=== PATIENT | female | born 1970 | race Caucasian/White ===

== ENCOUNTER 2022-12-25 18:31 | Inpatient (IN) | payer MEDICAID ==
[~2022-12-25] VITALS: Ht 149.9 cm; Wt 59.9 kg
[2022-12-25 18:56] VITALS: BP 233/78
[2022-12-25] MEDS ORDERED: ONDANSETRON 4 MG/2 ML VIAL IVP ONE (19:35)
[2022-12-25] MEDS ORDERED: MORPHINE SULFATE 4 MG/ML SYR IVP ONE (19:35)
[2022-12-25 19:36] LABS: BASOPHILS # (AUTO) 0.1 K/uL (0.00-0.22); BASOPHILS % (AUTO) 1.1 % (0.0-2.0); EOSINOPHILS # (AUTO) 0.3 K/uL (0-0.4); EOSINOPHILS % (AUTO) 3.7 % (0.0-4.0); HEMOGLOBIN 11.5 g/dL (12.0-16.0); LYMPHOCYTES # (AUTO) 4.4 K/uL (2.5-16.5); LYMPHOCYTES % (AUTO) 50.7 % (20.5-51.1); MEAN CORPUSCULAR HEMOGLOBIN 28 pg (27-31); MEAN CORPUSCULAR HGB CONC 34 g/dL (33-37); MEAN CORPUSCULAR VOLUME 83.1 fL (80-94); MONOCYTES # (AUTO) 0.5 K/uL (0.8-1.0); MONOCYTES % (AUTO) 5.7 % (1.7-9.3); NEUTROPHILS # (AUTO) 3.4 K/uL (1.8-7.7); NEUTROPHILS % (AUTO) 38.8 % (42.2-75.2); PLATELET COUNT (AUTO) 366 K/uL (140-450); RED CELL DISTRIBUTION WIDTH 14.2 % (11.6-13.7); WHITE BLOOD COUNT (AUTO) 8.7 K/uL (4.8-10.8)
--- NOTE | 2022-12-25 19:36 | NUR ---
PATIENT STABLE CAME TO ED FOR RIGHT UPER QUADRANT PAIN VITALS SIGNS IN NORMAL LIMITS ST 83 ON MONITOR
[2022-12-25 19:43] LABS: APPEARANCE,URINE CLEAR (CLEAR); BILIRUBIN,URINE NEGATIVE (NEGATIVE); BLOOD, URINE TRACE-I (NEGATIVE); COLOR,URINE YELLOW (YELLOW); LEUKOCYTE ESTERASE ,URINE NEGATIVE (NEGATIVE); NITRITE, URINE NEGATIVE (NEGATIVE); UGLUCOSE 2+ (NEGATIVE)
[2022-12-25] MEDS ORDERED: LABETALOL 20 MG/4 ML VIAL IVP ONE (20:00)
[2022-12-25 20:02] LABS: ALBUMIN 3.2 g/dL (3.4-5.0); ANION GAP 14.1 (8-16); CARBON DIOXIDE 25.6 mmol/L (21-32); CREATININE 0.9 mg/dL (0.6-1.3); POTASSIUM 3.7 mmol/L (3.5-5.1); TOTAL BILIRUBIN 0.2 mg/dL (0.0-1.0)
[2022-12-25 20:19] LABS: RBC,URINE 0 /HPF (0-5); WBC,URINE 0 /HPF (0-5)
[2022-12-25] MEDS ORDERED: PIPERACILLIN/TAZOBACTAM 3.375 GM in DEXTROSE 5% 50 ML IV ONE (20:30)
[2022-12-25] MEDS ORDERED: LORazepam 2 MG/ML VIAL IVP PRN (21:20)
[2022-12-25] MEDS ORDERED: ONDANSETRON 4 MG/2 ML VIAL IVP PRN (21:20)
[2022-12-25] MEDS ORDERED: MORPHINE SULFATE 2 MG/ML SYR IVP PRN (21:20)
[2022-12-25] MEDS ORDERED: POTASSIUM CHLORIDE 10 MEQ TABER PO PRN (21:20)
[2022-12-25] MEDS ORDERED: DOCUSATE SODIUM 100 MG GELCAP PO PRN (21:20)
[2022-12-25] MEDS ORDERED: MAG SULF 2000 MG/WATER PREMIX 50 ML IV PRN (21:20)
[2022-12-25] MEDS ORDERED: ZOLPIDEM 10 MG TAB PO PRN (21:20)
[2022-12-25] MEDS ORDERED: PIPERACILLIN/TAZOBACTAM 3.375 GM VIAL IV ONE (21:39)
--- NOTE | 2022-12-25 21:42 | NUR ---
COVID SWAB COLLECTED AND GIVEN TO AKOSUA FROM LAB.
[2022-12-25] MEDS ORDERED: PIPERACILLIN/TAZOBACTAM 3.375 GM in DEXTROSE 5% 50 ML IV SCH (21:45)
[2022-12-25] MEDS ORDERED: hydrALAZINE 20 MG/ML VIAL IVP ONE (22:00)
--- NOTE | 2022-12-25 23:00 | NUR ---
PT TRANSPORTED FROM ER VIA GURNEY. PT IS ABLE TO AMBULATE. GAIT STEADY. PT IS ALERT AND ORIENTATED. ESTONIAN SPEAKER. NOT IN ANY DISTRESS. REPORTS MILD PAIN ON RLQ OF ABD. PAIN IS TOLERABLE. PT HAS RIGHT WRIST 20 GAUGE. SALINE LOCK. EDUCATED PT FILLING MACHINE SET UP MECHANIC LIGHT SYSTEM AND ROOM ENVIRONMENT. POC DISCUSSED. WILL CONTINUE TO MONITOR THE PT.
--- NOTE | 2022-12-25 23:13 | NUR ---
PATIENT STABLE VITALS SIGNS IN NORMAL LIMITS ADMITED TO ROOM 120 B BP NOW 148/63 HR 62 REPORT AND ENDORSED CARE TO CHELSEY KAUR
[2022-12-25 23:20] VITALS: BP 147/60
[2022-12-26 04:00] VITALS: BP 175/69
[2022-12-26] MEDS ORDERED: PIPERACILLIN/TAZOBACTAM 3.375 GM VIAL IV ONE (04:17)
[2022-12-26] MEDS: PIPERACILLIN/TAZOBACTAM 3.375 GM in DEXTROSE 5% 50 ML IV SCH ×3 (04:24→21:34)
--- NOTE | 2022-12-26 04:50 | NUR ---
VITAL SIGNS TAKEN. PT BLOOD PRESSURE IS HIGH 175/74. WILL GIVE PRN HYDRALAZINE.
[2022-12-26] MEDS: hydrALAZINE 20 MG/ML VIAL IVP PRN ×2 (04:54→22:30)
[2022-12-26 06:35] LABS: ANION GAP 13.7 (8-16); CARBON DIOXIDE 26.2 mmol/L (21-32); CREATININE 0.9 mg/dL (0.6-1.3); POTASSIUM 3.9 mmol/L (3.5-5.1)
[2022-12-26 07:01] LABS: BASOPHILS # (AUTO) 0.1 K/uL (0.00-0.22); BASOPHILS % (AUTO) 0.5 % (0.0-2.0); EOSINOPHILS # (AUTO) 0.3 K/uL (0-0.4); EOSINOPHILS % (AUTO) 2.7 % (0.0-4.0); HEMATOCRIT 35.8 % (36-48); HEMOGLOBIN 11.9 g/dL (12.0-16.0); LYMPHOCYTES # (AUTO) 3.5 K/uL (2.5-16.5); LYMPHOCYTES % (AUTO) 35.6 % (20.5-51.1); MEAN CORPUSCULAR HEMOGLOBIN 28 pg (27-31); MEAN CORPUSCULAR HGB CONC 33 g/dL (33-37); MONOCYTES # (AUTO) 0.6 K/uL (0.8-1.0); MONOCYTES % (AUTO) 5.9 % (1.7-9.3); NEUTROPHILS # (AUTO) 5.5 K/uL (1.8-7.7); NEUTROPHILS % (AUTO) 55.3 % (42.2-75.2); PLATELET COUNT (AUTO) 368 K/uL (140-450); RED BLOOD CELL COUNT(AUTO) 4.26 MIL/uL (4.20-5.40); RED CELL DISTRIBUTION WIDTH 14.3 % (11.6-13.7); WHITE BLOOD COUNT (AUTO) 9.9 K/uL (4.8-10.8)
--- NOTE | 2022-12-26 07:15 | NUR ---
RECEIVED REPORT FROM NIGHTSHIFT NURSE. PT IS ASLEEP IN BED, WOKE UP TO NAME, AOX4, ON RM AIR, IV SITE TO RIGHT WRIST 20G, SALINE LOCK. PT IS SUDANESE SPEAKING, HAS DAUGHTER AT BEDSIDE. BED IN LOWEST POSITION, 2 SIDE RAILS UP, CALL LIGHT WITHIN REACH.
--- NOTE | 2022-12-26 07:20 | NUR ---
ENDORSED PT TO DAY SHIFT RN FOR CONTINUITY OF CARE. PT IS STABLE.
[2022-12-26 08:00] VITALS: BP 171/66
--- NOTE | 2022-12-26 09:37 | NUR ---
PATIENT HAS BEEN SCREENED AND CATEGORIZED LOW NUTRITION RISK. PATIENT WILL BE SEEN WITHIN 7 DAYS OF ADMISSION. 12/25/22-01/01/[address]
[2022-12-26] MEDS: ACETAMINOPHEN 325 MG TAB PO PRN ×2 (09:43→22:13)
[2022-12-26] MEDS ORDERED: NACL 0.9% 1,000 ML IV SCH (10:00)
[2022-12-26] MEDS: amLODIPine 5 MG TAB PO SCH (10:05)
[2022-12-26] MEDS ORDERED: DEXTROSE 50% 50 ML SYR IVP PRN (10:05)
[2022-12-26] MEDS: BLOOD GLUCOSE MONITORING 1 DEV DEV FS SCH ×3 (11:30→21:58)
[2022-12-26 12:00] VITALS: BP 143/67
[2022-12-26 16:00] VITALS: BP 137/54
--- NOTE | 2022-12-26 16:05 | NUR ---
PT WITH DR. VIEIRA AT BEDSIDE. CNA PER DIEM USED TO TRANSLATE IN KOREAN FOR PT (GILDARDO, #[id number] [facility]). DR. VIEIRA IS ASSESSING PT'S CURRENT CONDITION AND PAST MEDICAL HISTORY. HIDA SCAN AND ULTRA SOUND ARE ORDERED.
--- NOTE | 2022-12-26 19:00 | NUR ---
ENDORSED PT TO DAY SHIFT RN FOR CONTINUITY OF CARE. PT IS STABLE AND RESTING IN BED, DAUGHTER AT BEDSIDE. Addendum: 12/26/22 at 2031 by TIFFANIE PÉREZ RN ENDORSED PT TO TRAILER ASSEMBLER RN FOR CONTINUITY OF CARE. PT RESPONDS TO NAME, STABLE, AND LAYING IN BED. DAUGHTER AT BEDSIDE. BED IN LOWEST POSITION, 2 SIDE RAILS UP, CALL LIGHT PLACED WITHIN REACH.
[2022-12-26 20:00] VITALS: BP 166/70
--- NOTE | 2022-12-26 21:46 | NUR ---
febrile 100.8 , bp 183/67 , denies pain , will refer and will medicate , call light within reach . Addendum: 12/26/22 at 2157 by Marzena Orozco RN assisted to rest room - voided freely .
--- NOTE | 2022-12-26 22:30 | NUR ---
BP RE CHECK 183/70 , HR 117 , TEMP 100.8 F - WILL MEDICATE THE HIGH SBP A AND FEVER ORDERED , WILL CONT. TO MONITOR
--- NOTE | 2022-12-26 22:52 | NUR ---
CLARIFYING TO DR. VALERIO ABOUT HER STAT MORPHINE ORDERED , REMINDS DOCTOR PT IS JUST GOT HYDRALAZINE TIV MINS AGO AND FOR HIDA SCAN LULA AM , PER DR. VALERIO NEVER MIND THE MORPHINE TIV STAT SHE ORDERED . WILL CONT. TO MONITOR . Addendum: 12/27/22 at 0154 by Marzena Orozco RN AT 2252 RE ASSESS PT . THRU CUSTOMER SUPPORT COORDINATOR [id number] , PT IS AAOX4 , DENIES CHEST PAIN , OR ANY PAIN AT THIS TIME , NSS IVF BOLUS STILL ONGOING , BP RE CHECK 128 / 57 , RE CHECK TEMP 100.1F TYLENOL GIVEN , REMINDS PT.SHE IS NPO EXCEPTS MEDS AND FOR HIDA SCAN THIS AM , PT VERBALIZES UNDERSTANDING . INTERVIEW ASSESSMENT / CONVERSATION CARRIED OUT VIA MEDICAL AUDITOR . PT IS KITTITIAN SPEAKING . THE CUSTOMER SUPPORT COORDINATOR ID IS IN THIS NURSES NOTE .WILL CONT. TO MONITOR . Addendum: 12/27/22 at 0209 by Marzena Orozco RN THE ABOVE NURSE'S NOTE IS AN TIME ERROR ENTRY , INSTEAD OF [id number] - [id number]
[2022-12-26 23:05] VITALS: BP 124/36
--- NOTE | 2022-12-26 23:05 | NUR ---
PT HITS THE CALL LIGHT . VISITS THE PT - C/O CHEST PAIN , V/S RE CHECK 124/36 , HR 84 , RR 18 , O2 SAT 96 % TOO WEAK , ON TELE MONITOR - SR , REFER TO DR IMAN VALERIO STAT EKG , TROPONIN , WILL RE CHECK BS , CHARGE NURSE RADHA INFORM .
[2022-12-26] MEDS ORDERED: NACL 0.9% 1,000 ML IV STA (23:17)
--- NOTE | 2022-12-26 23:21 | NUR ---
BS 117
[2022-12-27] MEDS: DEXT 5% /NACL 0.9% 1,000 ML IV SCH ×2 (01:00→18:28)
--- NOTE | 2022-12-27 01:00 | NUR ---
re check bs after nss iv bolus - bs 105 , will cont. to monitor , call light within reach .
--- NOTE | 2022-12-27 01:55 | NUR ---
SLEEPING , ARAOUSABLE , DENIES PAIN , BP 142/ 56 , TEMP RE CHECK 98.5 F , CALL LIGHT WITHIN REACH , WILL CONT. TO MONITOR .
[2022-12-27 04:00] VITALS: BP 137/78
--- NOTE | 2022-12-27 04:00 | NUR ---
ROUNDS , NO COMPLAIN MADE , CALL LIGHT WITHIN REACH
--- NOTE | 2022-12-27 06:00 | NUR ---
RESTING ON BED , NO COMPLAIN MADE
[2022-12-27] MEDS: PIPERACILLIN/TAZOBACTAM 3.375 GM in DEXTROSE 5% 50 ML IV SCH ×3 (06:10→21:44)
[2022-12-27] MEDS: BLOOD GLUCOSE MONITORING 1 DEV DEV FS SCH ×4 (06:26→21:47)
[2022-12-27 07:06] LABS: BASOPHILS # (AUTO) 0.1 K/uL (0.00-0.22); BASOPHILS % (AUTO) 0.8 % (0.0-2.0); EOSINOPHILS # (AUTO) 0.1 K/uL (0-0.4); EOSINOPHILS % (AUTO) 1.3 % (0.0-4.0); HEMATOCRIT 30.8 % (36-48); HEMOGLOBIN 10.5 g/dL (12.0-16.0); LYMPHOCYTES # (AUTO) 3.5 K/uL (2.5-16.5); LYMPHOCYTES % (AUTO) 40.4 % (20.5-51.1); MEAN CORPUSCULAR HEMOGLOBIN 28 pg (27-31); MEAN CORPUSCULAR HGB CONC 34 g/dL (33-37); MEAN CORPUSCULAR VOLUME 83.1 fL (80-94); MONOCYTES # (AUTO) 0.6 K/uL (0.8-1.0); MONOCYTES % (AUTO) 6.5 % (1.7-9.3); NEUTROPHILS # (AUTO) 4.4 K/uL (1.8-7.7); PLATELET COUNT (AUTO) 332 K/uL (140-450); RED BLOOD CELL COUNT(AUTO) 3.71 MIL/uL (4.20-5.40); WHITE BLOOD COUNT (AUTO) 8.7 K/uL (4.8-10.8)
--- NOTE | 2022-12-27 07:20 | NUR ---
ENDORSED PT FOR CONT. OF CARE .
--- NOTE | 2022-12-27 07:25 | NUR ---
RECEIVED REPORT FROM NIGHTSHIFT NURSE. PT IS ASLEEP, WOKE TO NAME. PT IS STABLE, REPORTS NO NEEDS AT THIS TIME AND WILL RETURN TO SLEEP. IV SITE TO RIGHT WRIST 20G, D5 RUNNING AT 60MLS/HR, CLEAN, STILL INTACT. WILL CONTINUE TO MONITOR AND CONTINUE WITH CARE. BED IN LOWEST POSITION, 2 SIDE RAILS UP, CALL LIGHT PLACED WITHIN REACH.
[2022-12-27 07:26] LABS: ANION GAP 12.1 (8-16); CARBON DIOXIDE 23.6 mmol/L (21-32); CREATININE 0.9 mg/dL (0.6-1.3); POTASSIUM 3.7 mmol/L (3.5-5.1); PROTHROMBIN TIME 10.3 secs (10.8-13.4)
[2022-12-27 08:00] VITALS: BP 164/60
[2022-12-27] MEDS ORDERED: amLODIPine 5 MG TAB PO SCH (09:00)
[2022-12-27] MEDS: amLODIPine 5 MG TAB PO SCH (09:10)
[2022-12-27 12:00] VITALS: BP 131/74
[2022-12-27 16:00] VITALS: BP 168/67
--- NOTE | 2022-12-27 16:22 | NUR ---
DC PLANNING ASSESSMENT COMPLETE PLEASE REFER TO ASSESSMENT FOR ADDITIONAL DETAILS PT PRIMARILY DIVEHI SPEAKING THEREFORE, SUB MASTER UTILIZED; VASILIY [id number] PT IS A 52 YR OLD FEMALE ADMITTED TO [facility] FROM HOME WITH DX OF GASTROENTERITIS. PT HAS PAST MEDICAL HX OF HYPERTENSION, HYPERLIPIDEMIA, DIABETES PT REFERRED TO [facility]. SPOKE WITH PT ABOUT THE IMPORTANCE OF FOLLOWING UP AND PROVIDING REP WITH ALL REQUESTED INFORMATION NEED TO APPROVE. PT IS REPORTED TO UTILIZE CANE AND REPORTS COMPLETING ADL'S INDEPENDENTLY. PT RESIDES IN A GROUND FLOOR APT WITH HER DAUGHTER AT THE ADDRESS LISTED ON FILE. PT REFERRED TO [facility]. SPOKE WITH PT ABOUT THE IMPORTANCE OF FOLLOWING UP AND PROVIDING REP WITH ALL REQUESTED INFORMATION NEED TO APPROVE. PT REPORTS TENTATIVE DC PLAN IS TO RETURN HOME WITH FAMILY PROVIDING TRANSPORTATION, WHEN MEDICALLY STABLE. Addendum: 12/27/22 at 1624 by Hawa Haro Amended: Links added.
--- NOTE | 2022-12-27 16:28 | NUR ---
PT TAKEN TO HAVE HIDA SCAN DONE. REPORTED TO TAKE 1-2HRS LONG.
--- NOTE | 2022-12-27 17:35 | NUR ---
ADMINISTERED 2MG MORPHINE TO PT REQUESTED BY RADIOLOGY. PT STILL HAVING HIDA SCAN DONE.
--- NOTE | 2022-12-27 18:30 | NUR ---
PT RETURNED FROM HIDA SCAN. PT AOX4, STABLE, WILL CONTINUE TO MONITOR AND CONTINUE WITH CARE.
--- NOTE | 2022-12-27 19:35 | NUR ---
PT AWAKE, RESTING IN BED. REPORTS NO PAIN OR DISCOMFORT. NO FURTHER NEEDS ARE TO BE MET AT THIS TIME. BED IN LOWEST POSITION, 2 SIDE RAILS UP, CALL LIGHT PLACED WITHIN REACH. DR VIEIRA WANTS TO BE CONTACTED & INFORMED OF HIDA SCAN RESULTS ONCE RESULTS ARE AVAILABLE. PT DAUGHTER ALSO WANTS TO BE CONTACTED & INFORMED OF HIDA SCAN RESULTS ONCE RESULTS ARE AVAILABLE. DAUGHTER - TRAM KELLY (MACEDONIAN SPEAKING) ENDORSED PT TO BELL VALET NURSE FOR CONTINUITY OF CARE. [id number]
[2022-12-27 20:00] VITALS: BP 175/66
--- NOTE | 2022-12-27 20:15 | NUR ---
PATIENT IN BED WELL RESTED. NO SOB NOTED. BREATHING REGULAR UNLABORED. GRENADIAN SPEAKING, AMBULATORY. VISITOR AT BEDSIDE. IVF D5 NS AT 60 ML/HR INFUSING IN THE RIGHT WRIST. NO COMPLAINTS OF PAIN OR ANY DISCOMFORT AT THIS TIME. CALL LIGHT WITHIN REACH. SAFETY MEASURES IN PLACE.
[2022-12-28] VITALS: BP 163/65
[2022-12-28 02:00] VITALS: BP 163/65
[2022-12-28 04:00] VITALS: BP 162/65
[2022-12-28] MEDS: PIPERACILLIN/TAZOBACTAM 3.375 GM in DEXTROSE 5% 50 ML IV SCH (05:28)
[2022-12-28] MEDS: BLOOD GLUCOSE MONITORING 1 DEV DEV FS SCH ×4 (06:51→20:21)
--- NOTE | 2022-12-28 06:51 | NUR ---
BLOOD SUGAR WAS 112, NO INSULIN COVERAGE NEEDED.
[2022-12-28 07:08] LABS: BASOPHILS # (AUTO) 0.1 K/uL (0.00-0.22); BASOPHILS % (AUTO) 0.9 % (0.0-2.0); EOSINOPHILS # (AUTO) 0.1 K/uL (0-0.4); EOSINOPHILS % (AUTO) 1.9 % (0.0-4.0); HEMATOCRIT 30.8 % (36-48); HEMOGLOBIN 10.5 g/dL (12.0-16.0); LYMPHOCYTES # (AUTO) 4.2 K/uL (2.5-16.5); LYMPHOCYTES % (AUTO) 53.4 % (20.5-51.1); MEAN CORPUSCULAR HEMOGLOBIN 28 pg (27-31); MEAN CORPUSCULAR HGB CONC 34 g/dL (33-37); MEAN CORPUSCULAR VOLUME 83.4 fL (80-94); MONOCYTES # (AUTO) 0.7 K/uL (0.8-1.0); MONOCYTES % (AUTO) 9.5 % (1.7-9.3); NEUTROPHILS # (AUTO) 2.7 K/uL (1.8-7.7); NEUTROPHILS % (AUTO) 34.3 % (42.2-75.2); PLATELET COUNT (AUTO) 318 K/uL (140-450); RED CELL DISTRIBUTION WIDTH 14.1 % (11.6-13.7); WHITE BLOOD COUNT (AUTO) 7.8 K/uL (4.8-10.8)
[2022-12-28 07:13] LABS: ANION GAP 9.9 (8-16); CARBON DIOXIDE 26.4 mmol/L (21-32); CREATININE 0.9 mg/dL (0.6-1.3); POTASSIUM 3.3 mmol/L (3.5-5.1)
--- NOTE | 2022-12-28 07:20 | NUR ---
RECEIVED REPORT FROM NIGHT NURSE MARIA A FOR CONTINUITY OF CARE. INITIAL ASSESSMENT DONE. IVF INFUSING WELL. NOT IN ANY DISTRESS NOTED. CALL LIGHT KEPT WITHIN REACH. WILL CONTINUE TO MONITOR.
--- NOTE | 2022-12-28 07:22 | NUR ---
PATIENT STABLE. ENDORSED PATIENT TO DAY SHIFT NURSE FOR CONTINUITY OF CARE.
[2022-12-28 08:00] VITALS: BP 165/72
[2022-12-28] MEDS: amLODIPine 5 MG TAB PO SCH (09:47)
--- NOTE | 2022-12-28 09:47 | NUR ---
SCHEDULED PO MEDICATIONS GIVEN. TOLERATING WELL.
[2022-12-28] MEDS: DEXT 5% /NACL 0.9% 1,000 ML IV SCH ×2 (10:10→20:28)
--- NOTE | 2022-12-28 10:23 | NUR ---
PRN K DUR PO WAS GIVEN FOR POTASSIUM 3.3. TOLERATING WELL.
[2022-12-28] MEDS: lisinopriL 5 MG TAB PO SCH (10:25)
--- NOTE | 2022-12-28 10:25 | NUR ---
SCHEDULED PO MEDICATIONS WAS GIVEN TOLERATING WELL.
--- NOTE | 2022-12-28 10:40 | NUR ---
DR. VALERIO NOTIFIED OF RECEIVED CALLED FROM DR. VIEIRA STATED PT IS CLEARED FOR DISCHARGE. PER DR. VALERIO PT NEEDS REPEAT CT TO RULE OUT APPENDICITIS. REMAINS NPO. CONSULTED SURGEON & GASTROENTEROLOGY. PT MADE AWARE.
[2022-12-28] MEDS: INSULIN LISPRO SLIDING SCALE 100 UNITS/ML VIAL SUBQ PRN ×4 (12:27→20:23)
--- NOTE | 2022-12-28 12:44 | NUR ---
PRN MAG RIDER WAS GIVEN BY RYLAND KAUR. TOLERATING WELL.
[2022-12-28 16:00] VITALS: BP 166/70
--- NOTE | 2022-12-28 18:10 | NUR ---
IV SITE INFILTRATED. REINSERTED TO RT HAND 22 G, WITH GOOD BLOOD RETURN. TOLERATING WELL.
--- NOTE | 2022-12-28 18:35 | NUR ---
DR. VIEIRA NOTIFIED IF PT CAN ADVANCE DIET. NEW ORDER RECEIVED CLEAR LIQUID, IF TOLERATED, ADVANCE DIET. NOTED AND CARRIED OUT.
--- NOTE | 2022-12-28 19:18 | NUR ---
BEDSIDE REPORT GIVEN TO NIGHT NURSE ERMIAS FOR CONTINUITY OF CARE. ENDORSED TO ERMIAS NOTIFIED DR. VALERIO PT BP 166/70. AWAITING FOR RESPONSE. REMAINS STABLE.
--- NOTE | 2022-12-28 19:19 | NUR ---
RECEIVED REPORT FROM VINCENT SANCHEZ FOR CONTINUITY OF CARE. PT AWAKE WITH FAMILY MEMBER AT BEDSIDE. AMBULATORY. ABLE TO MAKE NEEDS KNOWN. RESPIRATIONS EVEN AND UNLABORED ON RA. IVF INFUSING TO RH. POC DISCUSSED WITH PT AND VINCENT PITT. CALL LIGHT WITHIN REACH. SAFETY PRECAUTIONS IN PLACE.
[2022-12-28 20:00] VITALS: BP 158/70
[2022-12-28] MEDS ORDERED: hydrALAZINE 10 MG TAB PO PRN (20:10)
--- NOTE | 2022-12-28 20:24 | NUR ---
SLIDING SCALE INSULIN GIVEN FOR BS 216. PT TOLERATED WELL.
--- NOTE | 2022-12-28 22:00 | NUR ---
Patient's Plan of Care was discussed and reviewed with AMADO WATERS
[2022-12-29] MEDS: DEXT 5% /NACL 0.9% 1,000 ML IV SCH (02:50)
[2022-12-29 04:00] VITALS: BP 153/69
--- NOTE | 2022-12-29 04:18 | NUR ---
DID ROUNDS. PT SLEEPING. CHEST RISING AND FALLING WITH NO ACUTE DISTRESS NOTED. WILL CONTINUE TO MONITOR.
[2022-12-29] MEDS: BLOOD GLUCOSE MONITORING 1 DEV DEV FS SCH ×2 (06:20→11:30)
[2022-12-29] MEDS: INSULIN LISPRO SLIDING SCALE 100 UNITS/ML VIAL SUBQ PRN ×2 (06:34→12:23)
--- NOTE | 2022-12-29 06:35 | NUR ---
SLIDING SCALE INSULIN ADMINISTERED FOR BLOOD SUGAR 153. SNACKS OFFERED AND GIVEN TO PT.
--- NOTE | 2022-12-29 07:00 | NUR ---
RECEIVED REPORT FROM FOREST LAW AND POLICY PROFESSORBYRON MONSON FOR CONTINUITY OF CARE. INITIAL ASSESSMENT DONE. IVF INFUSING WELL. NOT IN ANY DISTRESS NOTED. CALL LIGHT KEPT WITHIN REACH. WILL CONTINUE TO MONITOR.
--- NOTE | 2022-12-29 07:01 | NUR ---
ENDORSED PT TO AMADO SANCHEZ FOR CONTINUITY OF CARE. PT IS STABLE.
[2022-12-29 07:05] LABS: ANION GAP 11.8 (8-16); CARBON DIOXIDE 24.8 mmol/L (21-32); CREATININE 0.8 mg/dL (0.6-1.3); POTASSIUM 3.6 mmol/L (3.5-5.1)
[2022-12-29 07:07] LABS: BASOPHILS % (AUTO) 0.6 % (0.0-2.0); EOSINOPHILS # (AUTO) 0.3 K/uL (0-0.4); HEMATOCRIT 32.8 % (36-48); HEMOGLOBIN 10.9 g/dL (12.0-16.0); LYMPHOCYTES # (AUTO) 2.9 K/uL (2.5-16.5); LYMPHOCYTES % (AUTO) 37.7 % (20.5-51.1); MEAN CORPUSCULAR HEMOGLOBIN 28 pg (27-31); MEAN CORPUSCULAR HGB CONC 33 g/dL (33-37); MEAN CORPUSCULAR VOLUME 84.7 fL (80-94); MONOCYTES # (AUTO) 0.7 K/uL (0.8-1.0); MONOCYTES % (AUTO) 9.2 % (1.7-9.3); NEUTROPHILS # (AUTO) 3.8 K/uL (1.8-7.7); NEUTROPHILS % (AUTO) 48.5 % (42.2-75.2); PLATELET COUNT (AUTO) 332 K/uL (140-450); RED BLOOD CELL COUNT(AUTO) 3.87 MIL/uL (4.20-5.40); RED CELL DISTRIBUTION WIDTH 14.1 % (11.6-13.7); WHITE BLOOD COUNT (AUTO) 7.8 K/uL (4.8-10.8)
[2022-12-29 08:00] VITALS: BP 189/71
[2022-12-29] MEDS: amLODIPine 5 MG TAB PO SCH (08:37)
[2022-12-29] MEDS: lisinopriL 5 MG TAB PO SCH (08:37)
--- NOTE | 2022-12-29 08:37 | NUR ---
SCHEDULED PO MEDICATION GIVEN. TOLERATING WELL.
[2022-12-29] MEDS: ACETAMINOPHEN 325 MG TAB PO PRN (09:26)
--- NOTE | 2022-12-29 10:10 | NUR ---
PRN HYDRALAZINE PO WAS GIVEN FOR BP 175/65. TOLERATING WELL.
[2022-12-29] MEDS ORDERED: LISI5TAB24 PO (11:35)
[2022-12-29] MEDS ORDERED: AMLO-3 PO (11:35)
[2022-12-29] MEDS ORDERED: LISI-486 PO (11:37)
[2022-12-29] MEDS ORDERED: METF-346 PO (11:37)
--- NOTE | 2022-12-29 14:05 | NUR ---
PT LEFT. DISCHARGE TO HOME. TRANSPORTED BY PRIVATE VEHICLE PER WHEELCHAIR. ACCOMPANIED BY HER DAUGHTER. ALERT AND ORIENTED X4. TURKS AND [place] ISLANDER SPEAKING ONLY. IV AND ID BAND REMOVED. DISCHARGE PAPERWORK SIGNED AND DISCUSS BY PT. PERSONAL BELONGINGS TAKEN. REMAINS STABLE.
== END 2022-12-29 14:24 | disposition home or self-care (01) | DRG 720 ==
LOC: MED 18:31 → MTU 21:20
PROVIDERS: ADMIT Family Medicine; ATTEND Family Medicine
DX: A41.9 Sepsis, unspecified organism (principal); E44.1 Mild protein-calorie malnutrition; K80.00 Calculus of gallbladder with acute cholecystitis without obstruction; A04.9 Bacterial intestinal infection, unspecified; D64.9 Anemia, unspecified; E78.5 Hyperlipidemia, unspecified; E11.9 Type 2 diabetes mellitus without complications; I10 Essential (primary) hypertension; Z68.26 Body mass index [BMI] 26.0-26.9, adult; Z20.822 Contact with and (suspected) exposure to COVID-19
CPT/HCPCS: 36415; 76705; 78445; 80048; 80053; 81001; 82948; 83605; 83690; 83735; 84484; 85025; 85610; 85730; 86886; 86900; 86901; 87040; 87081; 93005; 96374; 96375; 99285; J0360; J1815; J2270; J2405; J2543; J3475; J3490; J7060; Q0092